=== PATIENT | male | born 1970 ===

== ENCOUNTER 2022-10-18 04:25 | Day surgery (SDC) | payer OTHER ==
[2022-10-16 14:13] VITALS: BMI 35.0
[2022-10-18] MEDS ORDERED: PROPOFOL 20 ML ONE (13:53)
[2022-10-18] MEDS ORDERED: MIDAZOLAM HCL 2 MG/2 ML SINGLE DOSE VIAL ONE (13:53)
[2022-10-18] MEDS ORDERED: ADENOSINE 6 MG/2 ML VIAL IVPUSH ONE (13:59)
[2022-10-18] MEDS ORDERED: ceFAZolin SODIUM 1 GM VIAL ONE (14:34)
[2022-10-18] MEDS ORDERED: DEXAMETHASONE SOD PHOSPHATE 4 MG/1 ML VIAL ONE (14:34)
[2022-10-18] MEDS ORDERED: ceFAZolin SODIUM 1 GM VIAL IVPB ONE (14:35)
[2022-10-18] MEDS ORDERED: KETOROLAC TROMETHAMINE 30 MG/1 ML VIAL ONE (15:31)
[2022-10-18] MEDS ORDERED: ONDANSETRON 4 MG/2 ML VIAL ONE (15:31)
[2022-10-18] MEDS ORDERED: ONDANSETRON 4 MG/2 ML VIAL IVPUSH PRN (15:54)
[2022-10-18] MEDS ORDERED: PROMETHAZINE HCL 25 MG/1 ML VIAL IVPB PRN (15:54)
[2022-10-18] MEDS ORDERED: oxyCODONE HCL 5 MG TABLET PO PRN ×2 (15:54)
[2022-10-18] MEDS ORDERED: LACTATED RINGERS SOLUTION 1,000 ML IV SCH (16:00)
[2022-10-18] MEDS ORDERED: oxyCODONE HCL 5 MG TABLET ONE (17:18)
[2022-10-18 17:27] VITALS: RESP 18
[2022-10-18 17:48] VITALS: BP 133/69; PULSE 69; TEMP 97.8
== END 2022-10-18 18:05 | disposition home or self-care (01) ==
LOC: JASU-SURG 04:25
PROVIDERS: ATTEND Urology
PROC: 0V503ZZ Destruction of Prostate, Percutaneous Approach (ICD-10-PCS; principal; 2022-10-18 13:30)
DX: C61 Malignant neoplasm of prostate (principal)
CPT/HCPCS: 55873; C2618; 94760; C1769